=== PATIENT | female | born 1955 | race Caucasian/White ===

== ENCOUNTER → 2020-03-21 | Outpatient (CLI) | payer OTHER, MEDICARE ==
[~2020-03-21] MED LIST: CARAFATE 1 GM TA1 G1 PO; CELEBREX 200 M200 MG PO; CELEXA 20 MG TA20 MG PO; HYDROCHLOROTHIA25 M1 PO; LOVENOX SC; NEXIUM40 MG PO; PERCOCET 7.5-31 EACH PO; TOPROL XL 50 MG50 M1 PO; VICODIN ES TAB1 EACH PO
[2020-03-21 13:29] LABS: CREATININE 1.2 mg/dL (0.6-1.3)
== END ==
LOC: M.ULTRA 03-08 12:24 → M.LAB 12:30 → M.MRI 13:30
PROVIDERS: ATTEND Family Medicine
DX: M51.37 Other intervertebral disc degeneration, lumbosacral region (principal); M47.16 Other spondylosis with myelopathy, lumbar region; M48.061 Spinal stenosis, lumbar region without neurogenic claudication; M79.604 Pain in right leg